=== PATIENT | male | born 1980 | race African-American/Black ===

== ENCOUNTER 2021-01-16 10:28 | Inpatient (IN) | payer BC ==
[2021-01-16] VITALS (25 sets, daily range): BP systolic 136–178; BP diastolic 83–115
[~2021-01-16] VITALS: Ht 175.3 cm; Wt 68.0 kg
[2021-01-16] MEDS ORDERED: LIDOCAINE HCL/PF 1% 2ML VIAL ONE (10:46)
[2021-01-16] MEDS ORDERED: SODIUM CHLORIDE 0.9% 1,000 ML IV ONE (11:00)
[2021-01-16 11:16] LABS: HEMOGLOBIN. 12.6 g/dL (14.0-18.0); MEAN CORPUSCULAR HEMOGLOBIN 30.7 pg (28.0-32.0); MEAN PLATELET VOLUME 7.5 fl (7.4-10.4); PLATELET 480 x1000/uL (130-400); RED CELL DISTRIBUTION WIDTH 21.8 % (11.6-14.6)
[2021-01-16 11:20] LABS: BG CARBOXYHEMOGLOBIN 0.9 % (0.5-1.5); BG DEOXYHEMOGLOBIN 4.8 % (0.0-5.0); BG HCO3 ACT 12.1 mmol/L (22.0-26.0); BG METHEMOGLOBIN 0.3 % (0.0-1.5); BG OXYGEN SATURATION 95.1 % (92.0-98.5); BG PCO2 29.1 mmHg (35.0-45.0); BG PH 7.236 (7.350-7.450); BG PO2 90.9 mmHg (75.0-100.0); BG SAMPLE SITE RIGHT RADIAL; BG TOTAL HEMOGLOBIN 12.1 g/dL (12.0-18.0); BG VENT MODE MASK - NRB
[2021-01-16 11:24] LABS: CHLORIDE 92 mEq/L (98-107)
[2021-01-16 11:33] LABS: BETA HYDROXYBUTYRATE 7.6 mMol/L (0.0-0.3)
[2021-01-16] MEDS ORDERED: FUROSEMIDE 100MG/10ML VIAL IV STA (11:56)
[2021-01-16] MEDS ORDERED: DEXTROSE 50% WATER 50ML SYRINGE IV ONE (12:00)
[2021-01-16] MEDS ORDERED: INSULIN REGULAR (HUMULIN R) 300UNITS/3ML VIAL IV ONE (12:00)
[2021-01-16] MEDS ORDERED: SODIUM BICARBONATE 8.4% 1 MEQ/ML 50ML SYR IV ONE (12:00)
[2021-01-16] MEDS ORDERED: ALBUTEROL (0.083%) 2.5MG/3ML NEB HHN ONE (12:00)
[2021-01-16] MEDS ORDERED: CALCIUM CHLORIDE 1GM/10ML SYR IV ONE (12:00)
[2021-01-16] MEDS ORDERED: HYDRALAZINE 20MG/ML VIAL IV ONE (12:15)
[2021-01-16] MEDS ORDERED: INSULIN REGULAR (DRIP) 100 UNITS in SODIUM CHLORIDE 0.9% 99 ML IV SCH (12:15)
[2021-01-16] MEDS ORDERED: ENOXAPARIN 60MG/0.6ML SYR SUBCUT ONE (12:30)
[2021-01-16 12:46] LABS: PLATELET ESTIMATE SLIGHTLY INCREASED
[2021-01-16] MEDS ORDERED: DIPHENHYDRAMINE 50MG/ML VIAL IV PRN (13:15)
[2021-01-16] MEDS ORDERED: ONDANSETRON HCL 4MG/2ML INJ IV PRN (13:15)
[2021-01-16] MEDS ORDERED: CEFTRIAXONE 1 G PREMIX 50 ML IV SCH (13:15)
[2021-01-16] MEDS ORDERED: SODIUM CHLORIDE 0.9% 1,000 ML IV SCH (13:15)
[2021-01-16] MEDS ORDERED: IPRATROPIUM/ALBUTEROL 0.5-3(2.5)MG/3ML NEB HHN PRN (13:15)
[2021-01-16] MEDS ORDERED: AZITHROMYCIN 500 MG in DEXT 5% WATER 250 ML IV SCH (14:00)
[2021-01-16] MEDS ORDERED: CEFTRIAXONE 1,000 MG in DEXTROSE 5% WATER 50 ML IV SCH (15:00)
[2021-01-16] MEDS ORDERED: DEXT 5%/0.9% NACL 1,000 ML IV SCH ×2 (15:45→21:00)
[2021-01-16] MEDS ORDERED: SODIUM POLYSTYRENE SULFONATE 15 G/60 ML BOT PO NR (16:00)
[2021-01-16] MEDS ORDERED: SODIUM BICARBONATE 8.4% 1 MEQ/ML 50ML SYR IV NR (16:00)
[2021-01-16] MEDS ORDERED: INSULIN REGULAR (DRIP) 100 UNITS in SODIUM CHLORIDE 0.9% 100 ML IV SCH (17:00)
[2021-01-16] MEDS: IPRATROPIUM BROMIDE (0.02%) 0.5MG/2.5ML NEB HHN SCH (17:19)
[2021-01-16] MEDS ORDERED: BLOOD SUGAR DIAGNOSTIC STRIP TEST SCH (18:15)
[2021-01-16] MEDS ORDERED: DEXTROSE 50% WATER 50ML SYRINGE IV PRN ×2 (18:15)
[2021-01-16] MEDS: CLONIDINE 0.1MG TABLET PO PRN (19:39)
[2021-01-16] MEDS: BLOOD SUGAR DIAGNOSTIC STRIP TEST SCH (20:46)
[2021-01-16] MEDS: INSULIN LISPRO 100 UNITS/ML SUBCUT SCH (20:47)
[2021-01-16] MEDS: HYDRALAZINE HCL 25MG TABLET PO SCH ×2 (22:00→23:50)
[2021-01-16] MEDS: INSULIN GLARGINE UD 100 UNITS/ML SYR SUBCUT SCH (22:18)
[2021-01-16] MEDS: ACETAMINOPHEN 325MG TABLET PO PRN (23:22)
[2021-01-16] MEDS: ISOSORBIDE DINITRATE 20MG TABLET PO SCH (23:51)
[2021-01-17] VITALS (75 sets, daily range): BP systolic 116–188; BP diastolic 56–121
[2021-01-17] MEDS ORDERED: HEPARIN SODIUM 1,000 UNIT/1ML VIAL IV NR (01:30)
[2021-01-17] MEDS: CLONIDINE 0.1MG TABLET PO PRN ×3 (04:03→21:04)
[2021-01-17] MEDS: IPRATROPIUM BROMIDE (0.02%) 0.5MG/2.5ML NEB HHN SCH ×6 (04:47→21:03)
[2021-01-17] MEDS: HYDRALAZINE HCL 25MG TABLET PO SCH ×2 (05:04→16:33)
[2021-01-17 05:40] LABS: HEMATOCRIT. 32.5 % (42.0-52.0); HEMOGLOBIN. 10.5 g/dL (14.0-18.0); MEAN CORPUSCULAR HEMOGLOBIN 30.1 pg (28.0-32.0); MEAN CORPUSCULAR VOLUME 93.1 fL (80.0-94.0); MEAN PLATELET VOLUME 7.6 fl (7.4-10.4); PLATELET 442 x1000/uL (130-400); RED BLOOD CELL COUNT 3.49 mill/uL (4.7-6.1); RED CELL DISTRIBUTION WIDTH 20.7 % (11.6-14.6)
[2021-01-17 05:47] LABS: CHLORIDE 100 mEq/L (98-107)
[2021-01-17 06:00] LABS: LDL CHOLESTEROL 100 mg/dL (5-100); PHOSPHORUS 5.9 mg/dL (2.5-4.9)
[2021-01-17 06:02] LABS: HDL CHOLESTEROL 76 mg/dL (40-59)
[2021-01-17] MEDS: INSULIN LISPRO 100 UNITS/ML SUBCUT SCH ×4 (06:16→21:23)
[2021-01-17] MEDS: BLOOD SUGAR DIAGNOSTIC STRIP TEST SCH ×4 (06:16→21:15)
[2021-01-17 07:16] LABS: NUCLEATED RED BLOOD CELLS 1 /100 WBC
[2021-01-17 07:20] LABS: PLATELET ESTIMATE SLIGHTLY INCREASED
[2021-01-17 08:40] LABS: BG BASE EXCESS 9.1 mmol/L (-2.0-2.0); BG CARBOXYHEMOGLOBIN 0.3 % (0.5-1.5); BG DEOXYHEMOGLOBIN 4.8 % (0.0-5.0); BG FRACTION INSPIRED OXYGEN 28; BG HCO3 ACT 33.4 mmol/L (22.0-26.0); BG METHEMOGLOBIN 0.2 % (0.0-1.5); BG OXYGEN SATURATION 95.2 % (92.0-98.5); BG OXYHEMOGLOBIN 94.7 % (94.0-97.0); BG PCO2 44.3 mmHg (35.0-45.0); BG PH 7.495 (7.350-7.450); BG PO2 73.8 mmHg (75.0-100.0); BG SAMPLE SITE RIGHT RADIAL; BG TOTAL HEMOGLOBIN 11.2 g/dL (12.0-18.0); BG VENT MODE NASAL CANNULA
[2021-01-17] MEDS: ISOSORBIDE DINITRATE 20MG TABLET PO SCH ×3 (09:18→16:45)
[2021-01-17] MEDS: ACETAMINOPHEN 325MG TABLET PO PRN ×4 (11:57→17:23)
[2021-01-17] MEDS: CEFTRIAXONE 1,000 MG in DEXTROSE 5% WATER 50 ML IV SCH (12:21)
[2021-01-17] MEDS ORDERED: AZITHROMYCIN 500 MG in DEXT 5% WATER 250 ML IV SCH (13:00)
[2021-01-17] MEDS: CLONIDINE 0.2MG TABLET PO SCH (21:13)
[2021-01-17] MEDS: HYDRALAZINE HCL 50MG TABLET PO SCH (21:21)
[2021-01-17] MEDS: CARVEDILOL 6.25 MG TABLET PO SCH (21:21)
[2021-01-17] MEDS: INSULIN GLARGINE UD 100 UNITS/ML SYR SUBCUT SCH (21:23)
[2021-01-18] MEDS ORDERED: MORPHINE SULFATE 2 MG/ML CPJ (NOT FOR IM USE) IV PRN (00:30)
[2021-01-18 04:00] VITALS: BP 146/97
[2021-01-18] MEDS: IPRATROPIUM BROMIDE (0.02%) 0.5MG/2.5ML NEB HHN SCH ×4 (04:02→16:17)
[2021-01-18] MEDS: ACETAMINOPHEN 325MG TABLET PO PRN ×2 (04:11→09:12)
[2021-01-18] MEDS: HYDRALAZINE HCL 50MG TABLET PO SCH ×2 (05:20→13:03)
[2021-01-18] MEDS: BLOOD SUGAR DIAGNOSTIC STRIP TEST SCH ×4 (07:20→12:43)
[2021-01-18 07:27] LABS: BASOPHILS % 1.3 % (0.0-2.0); EOSINOPHILS % 1.5 % (0.0-5.0); HEMATOCRIT. 30.7 % (42.0-52.0); HEMOGLOBIN. 10.2 g/dL (14.0-18.0); LYMPHOCYTES % 9.7 % (20.0-50.0); MEAN CORPUSCULAR HEMOGLOBIN 30.9 pg (28.0-32.0); MEAN CORPUSCULAR VOLUME 93.4 fL (80.0-94.0); MEAN PLATELET VOLUME 7.6 fl (7.4-10.4); MONOCYTES % 10.2 % (2.0-8.0); NEUTROPHILS % 77.3 % (40.0-76.0); PLATELET 351 x1000/uL (130-400); RED BLOOD CELL COUNT 3.29 mill/uL (4.7-6.1); RED CELL DISTRIBUTION WIDTH 21.6 % (11.6-14.6)
[2021-01-18 07:34] LABS: PHOSPHORUS 8.4 mg/dL (2.5-4.9)
[2021-01-18] MEDS: INSULIN LISPRO 100 UNITS/ML SUBCUT SCH ×2 (07:50→12:43)
[2021-01-18 08:00] VITALS: BP 171/110
[2021-01-18] MEDS: CARVEDILOL 6.25 MG TABLET PO SCH (09:11)
[2021-01-18] MEDS: CLONIDINE 0.1MG TABLET PO PRN (09:11)
[2021-01-18] MEDS: ISOSORBIDE DINITRATE 20MG TABLET PO SCH ×2 (09:11→12:43)
[2021-01-18] MEDS: CLONIDINE 0.2MG TABLET PO SCH (09:15)
[2021-01-18] MEDS ORDERED: HYDROCODONE/ACETAMINOPHEN 5/325MG TABLET PO PRN (10:15)
[2021-01-18 12:00] VITALS: BP 136/92
[2021-01-18] MEDS: CEFTRIAXONE 1,000 MG in DEXTROSE 5% WATER 50 ML IV SCH (12:00)
[2021-01-18] MEDS ORDERED: HYDR-4135 PO (14:42)
[2021-01-18] MEDS ORDERED: COR6 PO (14:42)
[2021-01-18] MEDS ORDERED: LANTUSUD SUBCUT (14:42)
[2021-01-18] MEDS ORDERED: ISOS20TA8 PO (14:42)
[2021-01-18] MEDS ORDERED: CLON0.2T PO (14:42)
[2021-01-18 16:00] VITALS: BP 154/94
[2021-01-18 16:24] VITALS: BP 154/96
== END 2021-01-18 17:38 | disposition home or self-care (01) | DRG 871 ==
LOC: ER 10:40 → MICUSO 13:01 → EDBEDREQ 13:03 → ENRESERV 16:20 → 6WST 01-17 22:50
PROVIDERS: ADMIT Internal Medicine; ATTEND Internal Medicine
PROC: 02HV33Z Insertion of Infusion Device into Superior Vena Cava, Percutaneous Approach (ICD-10-PCS; principal; 2021-01-16)
PROC: B548ZZA Ultrasonography of Superior Vena Cava, Guidance (ICD-10-PCS; 2021-01-16)
DX: A41.9 Sepsis, unspecified organism (principal); E11.10 Type 2 diabetes mellitus with ketoacidosis without coma; I21.A1 Myocardial infarction type 2; I50.43 Acute on chronic combined systolic (congestive) and diastolic (congestive) heart failure; J18.9 Pneumonia, unspecified organism; J96.01 Acute respiratory failure with hypoxia; N18.6 End stage renal disease; E44.1 Mild protein-calorie malnutrition; E87.1 Hypo-osmolality and hyponatremia; I13.2 Hypertensive heart and chronic kidney disease with heart failure and with stage 5 chronic kidney disease, or end stage renal disease; I42.2 Other hypertrophic cardiomyopathy; N17.9 Acute kidney failure, unspecified; T86.19 Other complication of kidney transplant; D64.9 Anemia, unspecified; E11.22 Type 2 diabetes mellitus with diabetic chronic kidney disease; E78.5 Hyperlipidemia, unspecified; E83.39 Other disorders of phosphorus metabolism; E87.5 Hyperkalemia; I16.0 Hypertensive urgency; I44.7 Left bundle-branch block, unspecified; R65.20 Severe sepsis without septic shock; Y83.0 Surgical operation with transplant of whole organ as the cause of abnormal reaction of the patient, or of later complication, without mention of misadventure at the time of the procedure; Z20.822 Contact with and (suspected) exposure to COVID-19; Z82.49 Family history of ischemic heart disease and other diseases of the circulatory system; Z83.3 Family history of diabetes mellitus; Z86.16 Personal history of COVID-19; Z99.2 Dependence on renal dialysis; I08.1 Rheumatic disorders of both mitral and tricuspid valves
CPT/HCPCS: 36415; 36600; 71045; 71250; 74176; 76937; 80048; 80053; 80061; 82010; 82375; 82805; 82962; 83036; 83605; 83735; 83880; 84100; 84443; 84484; 85025; 87426; 93005; 93306; 93970; 99291; C1725; J0360; J0456; J0696; J1644; J1650; J1815; J1940; J2270; J3490; J7030; J7050; J7060